=== PATIENT | male | born 1965 | race Caucasian/White ===

== ENCOUNTER 2024-11-26 10:05 | Outpatient (CLI) | payer BC, SELFPAY ==
[2024-11-29 10:21] LABS: C4 Complement 22 mg/dL (13-39)
[2024-11-29 11:04] LABS: Complement C1q, S 16 mg/dL (12 - 22)
[2024-11-29 12:31] LABS: ANA Interpretation Positive (Negative); ANA Titer Pattern 1:80 Homogeneous
[2024-11-30 17:34] LABS: Baker's Yeast, IgE <0.10 kU/L (<0.70); Banana, IgE <0.10 kU/L (<0.70); Barley, IgE <0.10 kU/L (<0.70); Beef IgE <0.10 kU/L (<0.70); Black/White Pepper IgE <0.10 kU/L (<0.70); Broccoli IgE <0.10 kU/L (<0.70); Cacao/Cocoa, IgE <0.10 kU/L (<0.70); Cinnamon, IgE <0.10 kU/L (<0.70); Corn-Food IgE <0.10 kU/L (<0.70); Egg Whole IgE <0.10 kU/L (<0.70); Milk, IgE <0.10 kU/L (<0.70); Onion, IgE <0.10 kU/L (<0.70); Soybean IgE <0.10 kU/L (<0.70); Strawberry, IgE <0.10 kU/L (<0.70); White Potato, IgE <0.10 kU/L (<0.70)
== END 2024-11-26 10:06 | disposition home or self-care (01) ==
LOC: LBO 10:05
PROVIDERS: PCP Nurse Practitioner Family; Visit Provider Physician Assistant
DX: T78.3XXA Angioneurotic edema, initial encounter (principal); Z91.018 Allergy to other foods; J35.8 Other chronic diseases of tonsils and adenoids
CPT/HCPCS: 36415; 86003; 86038; 86160